=== PATIENT | female | born 1950 | race Caucasian/White ===

== ENCOUNTER 2016-09-11 20:31 | Emergency (ER) | payer BC ==
[~2016-09-11] VITALS: Ht 162.6 cm; Wt 74.8 kg
[~2016-09-11 20:31] MED LIST: AMLO5TAB2 PO; ASPI-498 OR
[2016-09-11] MEDS ORDERED: SODIUM CHLORIDE 0.9% 1,000 ML IV ONE (21:26)
[2016-09-11] MEDS ORDERED: diphenhdrAMINE HCL 50 MG/1 ML VL IV ONE (21:30)
[2016-09-11] MEDS ORDERED: cloNIDine HCL 0.1 MG TAB PO ONE (21:30)
[2016-09-11 21:44] LABS: Basophils # (auto) 0.1 uL; Basophils % (auto) 0.5 % (0.0-2.0); Eosinophils # (auto) 0.1 uL; Eosinophils % (auto) 0.9 % (0.0-7.0); Hemoglobin 14.4 g/dL (12.2-16.2); Lymphocytes # (auto) 3.9 uL; Lymphocytes % (auto) 31.9 % (10.0-50.0); Mean Corpuscular Hemoglobin 27.5 pg (28.0-32.0); Mean Corpuscular Hgb Conc. 31.9 g/dL (32.0-36.0); Mean Corpuscular Volume 86.4 fL (80.0-100.0); Mean Platelet Volume 8.6 fL (7.4-10.4); Monocytes # (auto) 0.7 uL; Monocytes % (auto) 5.5 % (0.0-12.0); Neutrophils # (auto) 7.5 uL; Neutrophils % (auto) 61.2 % (37.0-80.0); Platelet Count (auto) 304 10^3/uL (140-450); Red Cell Distribution Width 15.5 % (11.6-16.0); White Blood Cell 12.3 10^3/uL (4.4-10.8)
[2016-09-11 21:58] LABS: Partial Thromboplastin Time 32.9 sec (22.64-33.71); Prothrombin Time 10.3 sec (9.37-12.3)
[2016-09-11 22:01] LABS: Albumin 3.9 g/dL (3.4-5.0); BUN/Creatinine Ratio 17.6; Calcium 8.9 mg/dL (8.5-10.1); Potassium 3.7 mmol/L (3.5-5.1)
[2016-09-11 22:03] LABS: Bilirubin, Total 0.2 mg/dL (0.2-1.0)
[2016-09-11 23:02] LABS: Urine RBC None Seen /hpf (0 - 4)
[2016-09-11 23:09] LABS: Urine Bilirubin Negative (Negative); Urine Blood Negative /uL (Negative); Urine Color Yellow (Yellow); Urine Glucose Normal (Normal); Urine Ketone Negative (Negative); Urine Nitrite Negative (Negative); Urine Squamous Epithelial Cell FEW /hpf (<5); Urine Urobilinogen Normal (Negative)
[2016-09-12 00:59] VITALS: BP 135/76
== END 2016-09-12 01:04 | disposition home or self-care (01) ==
LOC: ER 20:36
DX: I10 Essential (primary) hypertension (principal); J20.9 Acute bronchitis, unspecified; J45.909 Unspecified asthma, uncomplicated; J44.9 Chronic obstructive pulmonary disease, unspecified; I25.2 Old myocardial infarction; F17.210 Nicotine dependence, cigarettes, uncomplicated; F12.10 Cannabis abuse, uncomplicated; Z88.6 Allergy status to analgesic agent; Z88.8 Allergy status to other drugs, medicaments and biological substances; Z88.0 Allergy status to penicillin; Z98.61 Coronary angioplasty status
CPT/HCPCS: 36415; 71010; 80053; 81001; 84484; 85025; 85610; 85730; 93005; 96361; 96374; 99285; J1200